=== PATIENT | female | born 1945 | race Caucasian/White ===

== ENCOUNTER 2017-10-08 05:44 | Emergency (ER) | payer MEDICARE ==
[~2017-10-08] VITALS: Ht 160 cm; Wt 58.5 kg
[~2017-10-08 05:44] MED LIST: GABA300C10 PO; HYDROCODONE; METH20TA PO; ROPINIROLE PO
[2017-10-08] MEDS ORDERED: FLUO10CA7 PO (07:06)
[2017-10-08 07:49] LABS: BASOPHILS # (AUTO) 0.05 x10^3/uL (0-0.1); BASOPHILS % (AUTO) 1 % (0-1); EOSINOPHILS # (AUTO) 0.07 x10^3/uL (0-0.4); EOSINOPHILS % (AUTO) 1 % (1-7); LYMPHOCYTES # (AUTO) 1.38 x10^3/uL (1-3.4); LYMPHOCYTES % (AUTO) 29 % (22-44); MD NO; MEAN CORPUSCULAR HEMOGLOBIN 31.8 pg (27.0-34.8); MEAN CORPUSCULAR HGB CONC 33.8 g/dL (32.4-35.8); MEAN CORPUSCULAR VOLUME 94.1 fL (80-100); MEAN PLATELET VOLUME 7.6 fL (7.4-10.4); MONOCYTES # (AUTO) 0.36 x10^3/uL (0.2-0.8); MONOCYTES % (AUTO) 8 % (2-9); NEUTROPHILS % (AUTO) 61 % (42-75); PLATELET COUNT 290 x10^3/uL (130-400); RED BLOOD COUNT 4.28 x10^6/uL (3.82-5.3); RED CELL DISTRIBUTION WIDTH 13.2 % (9.6-15.2)
[2017-10-08 07:57] LABS: ALANINE AMINOTRANSFERASE 28 U/L (12-78); ALBUMIN 3.5 g/dL (3.4-5.0); ANION GAP 5 mmol/L (5-15); CALCIUM 8.8 mg/dL (8.5-10.1); CHLORIDE 108 mmol/L (98-107); CREATININE 0.79 mg/dL (0.55-1.02)
[2017-10-08 08:02] LABS: ALKALINE PHOSPHATASE 72 U/L (45-117); BILIRUBIN,TOTAL 0.2 mg/dL (0.2-1.0); TOTAL PROTEIN 7.3 g/dL (6.4-8.2); TROPONIN I < 0.015 ng/mL (0.000-0.045)
[2017-10-08 08:26] LABS: CULTURE INDICATED? NO; MICROSCOPIC NOT IND
[2017-10-08 08:31] VITALS: BP 162/66
== END 2017-10-08 09:21 | disposition home or self-care (01) ==
LOC: ED 06:52
DX: Z76.0 Encounter for issue of repeat prescription (principal); R53.1 Weakness; R53.82 Chronic fatigue, unspecified
CPT/HCPCS: 36415; 80053; 81003; 84484; 85025; 93005; 99285

== ENCOUNTER → 2017-12-12 | Outpatient (CLI) | payer MEDICARE ==
[~2017-12-12] MED LIST changes: +FLUO10CA7 PO
== END | disposition home or self-care (01) ==
LOC: CFH 07:15
PROVIDERS: ATTEND Family Medicine
DX: M41.86 Other forms of scoliosis, lumbar region (principal); M51.36 Other intervertebral disc degeneration, lumbar region; M25.552 Pain in left hip; M46.1 Sacroiliitis, not elsewhere classified
CPT/HCPCS: 72110; 72190

== ENCOUNTER 2018-11-20 08:06 | Outpatient (CLI) | payer MEDICARE | END 2018-11-20 23:59 | disposition home or self-care (01) | LOC: CFH 08:06 | PROVIDERS: ATTEND Family Medicine | DX: M85.88 Other specified disorders of bone density and structure, other site (principal); M81.0 Age-related osteoporosis without current pathological fracture; M46.1 Sacroiliitis, not elsewhere classified | CPT/HCPCS: 77080 ==

== ENCOUNTER 2019-03-14 08:36 | Inpatient (IN) | payer MEDICARE ==
[~2019-03-14] VITALS: Ht 160 cm; Wt 60.5 kg
--- NOTE | 2019-03-14 09:00 | NUR ---
pt presented to ed with constipation x 1 week. pt stated she started a new add medication a few weeks ago. pt then stated that this has caused constipation. pt stated that she has stopped this medication and the constipation has continued. pt with abd pain x 1 week. pt placed in room and placed in gown. pt placed on bp and cont. pulse oximeter. assessment completed.
--- NOTE | 2019-03-14 09:13 | NUR ---
report given to jackeline guillory.
[2019-03-14] MEDS ORDERED: SODIUM CHLORIDE FLUSH 10ML SYR IVF ONE (09:30)
[2019-03-14 09:53] LABS: BASOPHILS # (AUTO) 0.01 x10^3/uL (0-0.1); BASOPHILS % (AUTO) 0 % (0-1); EOSINOPHILS # (AUTO) 0.09 x10^3/uL (0-0.4); EOSINOPHILS % (AUTO) 2 % (1-7); LYMPHOCYTES # (AUTO) 0.89 x10^3/uL (1-3.4); LYMPHOCYTES % (AUTO) 16 % (22-44); MD NO; MEAN CORPUSCULAR HEMOGLOBIN 33.3 pg (27.0-34.8); MEAN CORPUSCULAR HGB CONC 33.3 g/dL (32.4-35.8); MEAN CORPUSCULAR VOLUME 99.8 fL (80-100); MEAN PLATELET VOLUME 7.9 fL (7.4-10.4); MONOCYTES # (AUTO) 0.35 x10^3/uL (0.2-0.8); MONOCYTES % (AUTO) 6 % (2-9); NEUTROPHILS # (AUTO) 4.18 x10^3/uL (1.8-6.8); NEUTROPHILS % (AUTO) 76 % (42-75); PLATELET COUNT 325 x10^3/uL (130-400); RED BLOOD COUNT 4.58 x10^6/uL (3.82-5.3); RED CELL DISTRIBUTION WIDTH 13.5 % (9.6-15.2)
[2019-03-14 10:02] LABS: PROTHROMBIN TIME 10.5 Seconds (9.6-11.5)
[2019-03-14 10:04] LABS: ALANINE AMINOTRANSFERASE 350 U/L (12-78); ALBUMIN 3.5 g/dL (3.4-5.0); ANION GAP 7 mmol/L (5-15); BILIRUBIN, DIRECT 6.1 mg/dL (0.1-0.2); CHLORIDE 106 mmol/L (98-107); CREATININE 0.87 mg/dL (0.55-1.02)
[2019-03-14 10:07] LABS: ALKALINE PHOSPHATASE 419 U/L (45-117); BILIRUBIN,INDIRECT 1.8 mg/dL (0.0-2.0); BILIRUBIN,TOTAL 7.9 mg/dL (0.2-1.0); TOTAL PROTEIN 7.1 g/dL (6.4-8.2)
--- NOTE | 2019-03-14 10:15 | NUR ---
PT TO CT W TECH
[2019-03-14] MEDS ORDERED: OMNIPAQUE 350 MG/ML, 100ML BOTTLE ONE (10:27)
[2019-03-14 11:07] LABS: MICROSCOPIC INDICATED
--- NOTE | 2019-03-14 11:20 | NUR ---
PT TO MRI W TECH
[2019-03-14 11:22] LABS: CULTURE INDICATED? YES
--- NOTE | 2019-03-14 11:57 | NUR ---
PT RETURNED FROM [facility]. SHE TOLERATED THE IMAGING WELL.
--- NOTE | 2019-03-14 12:25 | NUR ---
PT IS RESTING COMFORTABLY ON AN E.R. GURNEY, THERE ARE NO ACUTE CHANGES NOTED SINCE HER ARRIVAL HERE TODAY. HER VS ARE STABLE, AND WDL. I WILL CONTINUE TO MONITOR AND TREAT ORDERED, WELL PRN WHILE AWAITING A ROOM ASSIGNMENT FOR ADMISSION.
--- NOTE | 2019-03-14 14:07 | NUR ---
verbal sbar exchanged mitesh todd (rn) on th floor for admission. we will begin to prepare for transport at this time.
[2019-03-14 14:24] VITALS: BP 172/90
[2019-03-14] MEDS ORDERED: MAGNESIUM HYDROXIDE 8%, 30ML UDC PO PRN (15:00)
[2019-03-14] MEDS ORDERED: ONDANSETRON 2MG/ML, 2ML IVPush PRN (15:30)
[2019-03-14] MEDS ORDERED: GABAPENTIN 300 MG CAPSULE PO SCH (15:30)
[2019-03-14] MEDS ORDERED: morphine SULFATE 10 MG/ML, 1ML IVPush PRN (15:30)
[2019-03-14] MEDS ORDERED: NITROGLYCERIN 0.4 MG BOTTLE (25 TABS) SL PRN (15:30)
[2019-03-14] MEDS ORDERED: CYCLOBENZAPRINE 10 MG TABLET PO PRN (15:30)
[2019-03-14] MEDS ORDERED: GUAIFENESIN/COD200MG-20MG/10ML LIQUID PO PRN (15:30)
[2019-03-14] MEDS ORDERED: DOCUSATE 100 MG CAPSULE PO PRN (15:30)
[2019-03-14] MEDS ORDERED: ACETAMINOPHEN 325 MG TABLET PO PRN (15:30)
[2019-03-14] MEDS: metroNIDAZOLE 500 MG TABLET PO SCH ×2 (16:41→21:05)
[2019-03-14] MEDS: CIPROFLOXACIN 500 MG TABLET PO SCH (16:41)
[2019-03-14 17:50] VITALS: BP_SYST 192; BP_SYST 201; BP_DIAS 94; BP_DIAS 96
[2019-03-14] MEDS: hydrALAzine 20 MG/ML, 1ML IVPush PRN (17:57)
[2019-03-14] MEDS: OXYcodone IR 5MG TABLET PO PRN (18:09)
[2019-03-14 18:35] VITALS: BP 145/70
[2019-03-14 19:20] VITALS: BP 159/82
[2019-03-14] MEDS: GABAPENTIN 400 MG CAPSULE PO SCH (21:00)
[2019-03-15] MEDS: D5%-0.45NACL+KCL 20MEQ 1,000 ML IV SCH ×2 (00:04→10:38)
[2019-03-15] MEDS: OXYcodone IR 5MG TABLET PO PRN (01:13)
[2019-03-15 01:26] VITALS: BP 157/83
[2019-03-15] MEDS ORDERED: PROMETHAZINE 25 MG/ML, 1ML IM PRN (02:00)
[2019-03-15] MEDS ORDERED: HYDROmorphone 1 MG/ML, 1ML INJ IV PRN (02:00)
[2019-03-15] MEDS: CIPROFLOXACIN 500 MG TABLET PO SCH ×2 (03:16→16:11)
[2019-03-15 04:43] LABS: BASOPHILS # (AUTO) 0.02 x10^3/uL (0-0.1); BASOPHILS % (AUTO) 0 % (0-1); EOSINOPHILS # (AUTO) 0.02 x10^3/uL (0-0.4); EOSINOPHILS % (AUTO) 0 % (1-7); LYMPHOCYTES # (AUTO) 0.62 x10^3/uL (1-3.4); LYMPHOCYTES % (AUTO) 12 % (22-44); MD NO; MEAN CORPUSCULAR HEMOGLOBIN 33.5 pg (27.0-34.8); MEAN CORPUSCULAR HGB CONC 33.5 g/dL (32.4-35.8); MEAN CORPUSCULAR VOLUME 100.1 fL (80-100); MEAN PLATELET VOLUME 8.1 fL (7.4-10.4); MONOCYTES # (AUTO) 0.24 x10^3/uL (0.2-0.8); MONOCYTES % (AUTO) 5 % (2-9); NEUTROPHILS % (AUTO) 83 % (42-75); PLATELET COUNT 310 x10^3/uL (130-400); RED BLOOD COUNT 4.44 x10^6/uL (3.82-5.3)
[2019-03-15 04:59] LABS: ALBUMIN 3.2 g/dL (3.4-5.0); ANION GAP 6 mmol/L (5-15); CALCIUM 8.8 mg/dL (8.5-10.1); CHLORIDE 103 mmol/L (98-107)
[2019-03-15 05:08] LABS: ALANINE AMINOTRANSFERASE 325 U/L (12-78); ALKALINE PHOSPHATASE 443 U/L (45-117); BILIRUBIN,TOTAL 7.9 mg/dL (0.2-1.0); CHOL/HDL RATIO 2.6; CHOLESTEROL, TOTAL 143 mg/dL (140-239); CREATININE 0.78 mg/dL (0.55-1.02); HDL CHOL % 39 % (28-40); HDL CHOLESTEROL (DIRECT) 56 mg/dL (40-60)
[2019-03-15 05:28] LABS: LDL CHOLESTEROL,CALCULATED 78 mg/dL (54-169); LDL/HDL RATIO 1.4 (0.5-3.0); TRIGLYCERIDES 44 mg/dL (50-200); VLDL CHOLESTEROL 9 mg/dL (0-25)
[2019-03-15 07:30] VITALS: BP 181/92
[2019-03-15] MEDS: metroNIDAZOLE 500 MG TABLET PO SCH ×3 (08:12→20:26)
[2019-03-15] MEDS: FLUOXETINE 10 MG CAP PO SCH (08:13)
[2019-03-15] MEDS: GABAPENTIN 400 MG CAPSULE PO SCH ×3 (08:13→20:26)
[2019-03-15] MEDS: HYDROmorphone 2 MG/ML, 1ML IV PRN ×2 (08:19→08:49)
[2019-03-15 08:21] VITALS: BP 166/89
[2019-03-15] MEDS ORDERED: FENTANYL PF 100 MCG/2ML ONE (12:45)
[2019-03-15] MEDS ORDERED: SUCCINYLCHOLINE 20 MG/ML, 10ML ONE (12:46)
[2019-03-15] MEDS ORDERED: PROPOFOL 10 MG/ML, 20ML ONE (12:46)
[2019-03-15] MEDS ORDERED: ROCURONIUM 10MG/ML,5ML ONE (12:46)
[2019-03-15] MEDS ORDERED: MIDAZOLAM 1 MG/ML, 2ML ONE (12:46)
[2019-03-15] MEDS ORDERED: LIDOCAINE 2%, 6 ML JEL.PF.APP MM ONE (12:49)
[2019-03-15] MEDS ORDERED: ONDANSETRON 2MG/ML, 2ML ONE (12:50)
[2019-03-15] MEDS ORDERED: DEXAMETHASONE 4 MG/ML, 1ML ONE (12:50)
[2019-03-15] MEDS ORDERED: EPHEDRINE 50 MG/ML, 1ML IVPush PRN (13:30)
[2019-03-15] MEDS ORDERED: LABETALOL 5MG/ML, 20ML IV PRN (13:30)
[2019-03-15] MEDS ORDERED: ALBUTEROL SULFATE 2.5 MG/3 ML NPPB PRN (13:30)
[2019-03-15] MEDS ORDERED: MORPHINE SULFATE 4 MG/ML, 1ML IVPush PRN (13:30)
[2019-03-15] MEDS ORDERED: HALOPERIDOL 5 MG/ML IV PRN (13:30)
[2019-03-15] MEDS ORDERED: DIAZEPAM 5 MG/ML, 2ML IVPush PRN (13:30)
[2019-03-15] MEDS ORDERED: hydrALAzine 20 MG/ML, 1ML IV PRN (13:30)
[2019-03-15] MEDS ORDERED: HYDROmorphone 2 MG/ML, 1ML IVPush PRN (13:30)
[2019-03-15] MEDS ORDERED: PROMETHAZINE 12.5 MG SUPP PR PRN (13:30)
[2019-03-15] MEDS ORDERED: ONDANSETRON ODT 8 MG PO PRN (13:30)
[2019-03-15] MEDS ORDERED: ONDANSETRON 2MG/ML, 2ML IV PRN (13:30)
[2019-03-15] MEDS ORDERED: FENTANYL PF 100 MCG/2ML IV PRN (13:30)
[2019-03-15] MEDS ORDERED: OXYcodone 5 MG/5 ML ORAL.SOL UDC PO PRN (13:30)
[2019-03-15] MEDS ORDERED: MEPERIDINE/PF 25MG/0.5ML IVPush PRN (13:30)
[2019-03-15] MEDS ORDERED: PROMETHAZINE 25 MG/ML, 1ML IV PRN (13:30)
[2019-03-15] MEDS ORDERED: MIDAZOLAM 1 MG/ML, 2ML IV PRN (13:30)
[2019-03-15] MEDS ORDERED: OMNIPAQUE 350 MG/ML, 50 ML BOTTLE ONE (13:51)
[2019-03-15] MEDS ORDERED: INDOMETHACIN 50 MG SUPP.RECT ONE (14:17)
[2019-03-15] MEDS ORDERED: INDOMETHACIN 50 MG SUPP.RECT PR ONE (14:30)
[2019-03-15] MEDS ORDERED: EPHEDRINE 50 MG/ML, 1ML ONE (14:53)
[2019-03-15 15:00] VITALS: BP 166/91
[2019-03-15 15:17] VITALS: BP 160/85
[2019-03-15] MEDS ORDERED: LACTATED RINGERS 1,000 ML IVBOLUS ONE (16:00)
[2019-03-15] MEDS: hydrALAzine 20 MG/ML, 1ML IVPush PRN (17:09)
[2019-03-15 19:34] VITALS: BP 135/76
[2019-03-16 00:36] VITALS: BP 123/66
[2019-03-16] MEDS: D5%-0.45NACL+KCL 20MEQ 1,000 ML IV SCH (00:37)
[2019-03-16] MEDS: CIPROFLOXACIN 500 MG TABLET PO SCH ×2 (03:37→16:06)
[2019-03-16 04:51] LABS: BASOPHILS # (AUTO) 0.01 x10^3/uL (0-0.1); BASOPHILS % (AUTO) 0 % (0-1); EOSINOPHILS # (AUTO) 0.04 x10^3/uL (0-0.4); EOSINOPHILS % (AUTO) 1 % (1-7); LYMPHOCYTES # (AUTO) 1.13 x10^3/uL (1-3.4); LYMPHOCYTES % (AUTO) 24 % (22-44); MD NO; MEAN CORPUSCULAR HEMOGLOBIN 32.4 pg (27.0-34.8); MEAN CORPUSCULAR HGB CONC 32.3 g/dL (32.4-35.8); MEAN CORPUSCULAR VOLUME 100.4 fL (80-100); MEAN PLATELET VOLUME 7.8 fL (7.4-10.4); MONOCYTES # (AUTO) 0.57 x10^3/uL (0.2-0.8); MONOCYTES % (AUTO) 12 % (2-9); NEUTROPHILS # (AUTO) 3.01 x10^3/uL (1.8-6.8); NEUTROPHILS % (AUTO) 63 % (42-75); PLATELET COUNT 289 x10^3/uL (130-400); RED BLOOD COUNT 3.99 x10^6/uL (3.82-5.3)
[2019-03-16 05:01] LABS: ALBUMIN 2.8 g/dL (3.4-5.0); ANION GAP 5 mmol/L (5-15); CALCIUM 8.9 mg/dL (8.5-10.1); CHLORIDE 106 mmol/L (98-107)
[2019-03-16 05:05] LABS: ALANINE AMINOTRANSFERASE 279 U/L (12-78); ALKALINE PHOSPHATASE 354 U/L (45-117); BILIRUBIN,TOTAL 2.9 mg/dL (0.2-1.0); CREATININE 0.91 mg/dL (0.55-1.02)
[2019-03-16 07:57] VITALS: BP 166/80
[2019-03-16] MEDS: metroNIDAZOLE 500 MG TABLET PO SCH ×3 (09:14→21:57)
[2019-03-16] MEDS: FLUOXETINE 10 MG CAP PO SCH (09:14)
[2019-03-16] MEDS: GABAPENTIN 400 MG CAPSULE PO SCH ×3 (09:14→21:57)
[2019-03-16] MEDS ORDERED: CIPR500T3 PO (13:02)
[2019-03-16] MEDS ORDERED: METR500T PO (13:02)
[2019-03-16 15:47] VITALS: BP 163/82
[2019-03-16 19:15] VITALS: BP 125/69
[2019-03-17 00:59] VITALS: BP 169/88
[2019-03-17] MEDS: CIPROFLOXACIN 500 MG TABLET PO SCH (04:30)
[2019-03-17 04:31] VITALS: BP 156/83
[2019-03-17 05:26] LABS: BASOPHILS # (AUTO) 0.04 x10^3/uL (0-0.1); BASOPHILS % (AUTO) 1 % (0-1); EOSINOPHILS # (AUTO) 0.21 x10^3/uL (0-0.4); EOSINOPHILS % (AUTO) 4 % (1-7); LYMPHOCYTES # (AUTO) 1.67 x10^3/uL (1-3.4); LYMPHOCYTES % (AUTO) 31 % (22-44); MD NO; MEAN CORPUSCULAR HEMOGLOBIN 32.2 pg (27.0-34.8); MEAN CORPUSCULAR HGB CONC 32.2 g/dL (32.4-35.8); MEAN CORPUSCULAR VOLUME 100.1 fL (80-100); MEAN PLATELET VOLUME 7.8 fL (7.4-10.4); MONOCYTES # (AUTO) 0.44 x10^3/uL (0.2-0.8); MONOCYTES % (AUTO) 8 % (2-9); NEUTROPHILS # (AUTO) 3.07 x10^3/uL (1.8-6.8); NEUTROPHILS % (AUTO) 57 % (42-75); PLATELET COUNT 312 x10^3/uL (130-400); RED BLOOD COUNT 4.13 x10^6/uL (3.82-5.3)
[2019-03-17 07:34] LABS: ALANINE AMINOTRANSFERASE 306 U/L (12-78); ALBUMIN 3.1 g/dL (3.4-5.0); ANION GAP 4 mmol/L (5-15); CHLORIDE 104 mmol/L (98-107)
[2019-03-17 07:36] LABS: ALKALINE PHOSPHATASE 318 U/L (45-117); BILIRUBIN,TOTAL 2.1 mg/dL (0.2-1.0); TOTAL PROTEIN 6.4 g/dL (6.4-8.2)
[2019-03-17 07:43] VITALS: BP 179/94
[2019-03-17] MEDS ORDERED: AMLODIPINE 2.5 MG TABLET PO ONE (08:00)
[2019-03-17] MEDS: FLUOXETINE 10 MG CAP PO SCH (08:16)
[2019-03-17] MEDS: metroNIDAZOLE 500 MG TABLET PO SCH (08:16)
[2019-03-17] MEDS: GABAPENTIN 400 MG CAPSULE PO SCH (08:16)
[2019-03-17 09:10] VITALS: BP 149/79
[2019-03-17] MEDS ORDERED: AMLO2.5T5 PO (11:11)
== END 2019-03-17 11:29 | disposition home or self-care (01) | DRG 444 ==
LOC: ED 10:14 → EDIP 11:18 → 3NW 14:18
PROVIDERS: ADMIT Internal Medicine; ATTEND Internal Medicine
PROC: BF47ZZZ Ultrasonography of Pancreas (ICD-10-PCS; 2019-03-15)
PROC: 0F798ZZ Dilation of Common Bile Duct, Via Natural or Artificial Opening Endoscopic (ICD-10-PCS; 2019-03-15)
PROC: 0DB68ZX Excision of Stomach, Via Natural or Artificial Opening Endoscopic, Diagnostic (ICD-10-PCS; 2019-03-15)
PROC: BF111ZZ Fluoroscopy of Biliary and Pancreatic Ducts using Low Osmolar Contrast (ICD-10-PCS; 2019-03-15)
PROC: 0FBG8ZX Excision of Pancreas, Via Natural or Artificial Opening Endoscopic, Diagnostic (ICD-10-PCS; principal; 2019-03-15 12:30)
DX: K83.1 Obstruction of bile duct (principal); K65.9 Peritonitis, unspecified; K83.09 Other cholangitis; K82.8 Other specified diseases of gallbladder; K59.00 Constipation, unspecified; F12.90 Cannabis use, unspecified, uncomplicated; F90.9 Attention-deficit hyperactivity disorder, unspecified type; G25.81 Restless legs syndrome; I10 Essential (primary) hypertension; R53.82 Chronic fatigue, unspecified; Z80.3 Family history of malignant neoplasm of breast; Z80.41 Family history of malignant neoplasm of ovary; Z82.3 Family history of stroke; Z85.3 Personal history of malignant neoplasm of breast; Z90.13 Acquired absence of bilateral breasts and nipples; Z90.710 Acquired absence of both cervix and uterus
CPT/HCPCS: 36415; 74177; 74181; 74328; 80053; 80061; 81001; 82247; 82248; 83690; 83735; 84100; 84443; 85025; 85610; 87086; 88172; 88173; 88177; 88305; 88307; 93005; G0378; J1100; J1170; J2250; J2405; J2550; J2704; J3010; Q9967; C1769; J0330; J0360; J2270; J3480; J7120